=== PATIENT | female | born 1965 | race Caucasian/White ===

== ENCOUNTER 2021-04-21 23:03 | Inpatient (IN) | payer BC ==
--- OUTSIDE RECORDS SUMMARY | 2021-04-21 23:07 | XMS REPORT | Continuity of Care Document ---
:1965 Author Organization [facility] t Address [address] [place] [address] Care Team Providers Name Role Phone FABRICIO_Valdez Attending Clinician Unavailable Ariane Castro Attending Clinician Unavailable Sigifredo Admitting Clinician Unavailable Physician, Primary or Family Admitting Clinician Unavailabl e Payers Payer Name Policy Type Policy Number Effective Date Expiration Date Leanna paniagua AEMAGDALENO (POS) [id number] 2000 00:00:00 Problems This patient has no known problems. Allergies, Adverse Reactions, Alerts Allergy Allergy Status Severity Reaction(s) Onset Inactive Treating Comm ents Source Name Type Date Date Clinician hydrocod DA Active U 2005-04 [facility] [place] [facility] HYDROCOD DA Active U SEVERE N/V 2005-04 [facility] ONE 05-23 [place] [facility] No Known DA Active U 2005-04 [facility] [place] All[facility] 00:00: d s 00 [facility] No Known DA Active U 2005-04 [facility] [place] [facility]: d s 00 [facility] No Known DA Active U 2005-04 [facility] [place] All[facility]: d s 00 [facility] Medications This patient has no known medications. Procedures This patient has no known procedures. Encounters Start End Encounter Admission Attending Care Care Encounter Source Date/Time Date/Time Type Type Clinicians Facility Department ID 2020-08-29 2020-08-29 Outpatient _[facility] PRIV [id number] [facility] 01:08:00 01:08:00 _Lucía [id number] Medica l 2020-08-02 2020-08-02 Outpatient _[facility] PRIV PRIV [id number] [facility] 01:39:00 01:39:00 _Lucía [id number] Medica l 2020-07-28 2020-07-28 Outpatient _[facility] PRIV PRIV [id number] [facility] 01:26:00 01:26:00 _Lucía [id number] Medica l 2020-06-22 2020-06-22 Outpatient KAUR Castro [facility] [id number] [facility] 12:00:00 12:00:00 Ameena [id number] [facility] 2019-05-15 2019-05-15 Outpatient KAUR Castro P[facility] [id number] [facility] 12:00:00 12:00:00 Ameena [id number] [facility] Results This patient has no known results.
[2021-04-21] MEDS ORDERED: MORPHINE 4 MG/ML SYR ONE (23:38)
[2021-04-21] MEDS ORDERED: ASPIRIN 81 MG CHEWABLE TABLET ONE (23:38)
[2021-04-21] MEDS ORDERED: ONDANSETRON 4 MG/2 ML VIAL ONE (23:56)
[2021-04-22 00:01] LABS: Absolute Lymphocytes (CBC) 1.9 K/uL (0.7-4.9); Hematocrit 41.7 % (36.0-45.0); Lymphocytes % 17.4 % (15.3-44.8); MPV 8.1 fL (7.6-11.3); RBC Red Blood Cell Count 4.84 M/uL (3.86-4.86)
[2021-04-22 00:02] LABS: Protime INR 0.98
[2021-04-22 00:46] LABS: ALT/SGPT 33 U/L (12-78); AST/SGOT 45 U/L (15-37); Albumin 3.7 g/dL (3.4-5.0); Alkaline Phosphatase 92 U/L (45-117); BUN Blood Urea Nitrogen 22 mg/dL (7-18); Bicarbonate 26 mmol/L (21-32); Bilirubin Direct < 0.1 mg/dL (0-0.2); Bilirubin Total 0.3 mg/dL (0.2-1.0); Glucose Level 105 mg/dL (74-106); Magnesium 2.3 mg/dL (1.8-2.4); NT PRO-BNP 3325 pg/mL (<125); Potassium 3.8 mmol/L (3.5-5.1); Protein, Total 8.3 g/dL (6.4-8.2); Sodium Level 138 mmol/L (136-145)
[2021-04-22 00:47] LABS: Troponin (Emerg Dept Use Only) 7.96 ng/mL (0.0-0.045)
[2021-04-22] MEDS ORDERED: NITROGLYCERIN 0.4 MG/TAB SL ONE (01:01)
[2021-04-22] MEDS ORDERED: NITROGLYCERIN 1 GM PKT TD ONE (01:39)
--- NOTE | 2021-04-22 01:42 | EDPHYS ---
Physician Documentation [facility] Name: Leora Crystal Age: 56 yrs Sex: Female : 1965 Arrival Date: 04/21/2021 Time: 23:06 Bed 8 Private MD: ED Physician Robbie Sweeney HPI: 04/21 23:35 This 56 yrs old Female presents to ER via Ambulatory with complaints of Chest Pain > 30 cp y/o. 23:35 The patient or guardian reports chest pain that is located primarily in the anterior cp chest wall. 23:35 Onset: last night, and became worse tonight. cp 23:35 The pain does not radiate. Associated signs and symptoms: Pertinent positives: cp shortness of breath. 23:35 The chest pain is described as tightness. Duration: The patient or guardian reports cp multiple episodes, that wax and wane. 23:35 Modifying factors: the symptoms are aggravated by activity. cp Historical: - Allergies: 04/22 02:23 Hydrocodone-Acetaminophen; sm5 02:23 Levaquin; sm5 - Home Meds: 02:23 levothyroxine oral once daily [Active]; losartan oral [Active]; Viibryd oral [Active]; sm5 Zyrtec Oral [Active]; - PMHx: 02:23 Lupus erythematosus; Hypertensive disorder; Hypothyroidism; sm5 - Immunization history:: Client reports receiving the 2nd dose of the Covid vaccine. - Social history:: Smoking status: unknown. ROS: 04/21 23:40 Cardiovascular: Positive for chest pain, Negative for edema, palpitations. cp 23:40 Constitutional: Negative for body aches, chills, fever, poor PO intake. cp 23:40 Respiratory: Positive for shortness of breath, at rest. Negative for cough, wheezing. 23:40 Abdomen/GI: Negative for abdominal pain, vomiting, diarrhea, constipation. 23:40 Eyes: Negative for injury, pain, redness, and discharge. cp 23:40 ENT: Negative for drainage from ear(s), ear pain, sore throat, difficulty swallowing, difficulty handling secretions. 23:40 Back: Negative for pain at rest, pain with movement, radiated pain. 23:40 Neuro: Negative for dizziness, headache, syncope, weakness. 23:40 All other systems are negative. Exam: 23:37 ECG was reviewed by the Attending Physician. cp 23:43 Constitutional: The patient appears in no acute distress, alert, awake, cp non-diaphoretic, non-toxic, well developed, well nourished, uncomfortable. 23:43 Head/Face: Normocephalic, atraumatic. cp 23:43 Eyes: Periorbital structures: appear normal, Conjunctiva: normal, no exudate, no injection, Sclera: no appreciated abnormality, Lids and lashes: appear normal, bilaterally. 23:43 ENT: External ear(s): are unremarkable, Nose: is normal, Mouth: Lips: moist, Oral mucosa: pink and intact, moist, Posterior pharynx: Airway: no evidence of obstruction, patent. 23:43 Neck: ROM/movement: pain, that is mild, limited range of motion, is not appreciated, nuchal rigidity, is not appreciated. 23:43 Chest/axilla: Inspection: normal. 23:43 Cardiovascular: Rate: normal, Rhythm: regular, Edema: is not appreciated, JVD: is not appreciated. 23:43 Respiratory: the patient does not display signs of respiratory distress, Respirations: normal, no use of accessory muscles, no retractions, labored breathing, is not present, Breath sounds: are clear throughout, no decreased breath sounds, no stridor, no wheezing. 23:43 Abdomen/GI: Inspection: abdomen appears normal, Palpation: abdomen is soft and non-tender, in all quadrants. 23:43 Back: pain, is absent, ROM is normal. 23:43 Neuro: Orientation: to person, place \\T\\ time. Mentation: is normal, Motor: moves all fours, strength is normal, Sensation: is normal. 04/22 01:00 ECG was reviewed by the Attending Physician. cp Vital Signs: 04/21 23:17 BP 135 / 91; Pulse 92; Resp 16; Temp 98.8; Pulse Ox 100% on R/A; Weight 97.52 kg; vc1 Height 5 ft. 7 in. (170.18 cm); Pain 8/10; 23:17 Body Mass Index 33.67 (97.52 kg, 170.18 cm) vc1 MDM: 04/22 00:46 Patient medically screened. cp 01:34 Physician consultation: Kaushik Pablo MD was called at 01:34, answering service cp contacted and will page DR Pablo to call back for consult. 01:38 The patient was given aspirin in the Emergency Department. Data reviewed: vital signs, cp nurses notes, lab test result(s), EKG. Test interpretation: by ED physician or midlevel provider: ECG. Physician consultation: Kaushik Pablo MD was contacted at 01:35, regarding consult, patient's condition, would like admission per Dr. Syed Zhou MD would like medications started, heparin. 04/21 23:53 Order name: Basic Metabolic Panel bb 04/21 23:53 Order name: CBC with Diff bb 04/21 23:53 Order name: LFT's bb 04/21 23:53 Order name: Magnesium; Complete Time: 01:08 bb 04/21 23:53 Order name: NT PRO-BNP; Complete Time: 00:49 bb 04/22 00:49 Interpretation: Abnormal: NT PRO-BNP 3325. cp 04/21 23:53 Order name: PT-INR; Complete Time: 00:38 bb 04/21 23:53 Order name: Troponin (emerg Dept Use Only); Complete Time: 00:49 bb 04/22 00:49 Interpretation: Abnormal: TROPED 7.96. cp 04/21 23:53 Order name: XRAY Chest (1 view); Complete Time: 05:21 bb 04/21 23:54 Order name: Basic Metabolic Panel; Complete Time: 00:49 EDMS 04/22 00:49 Interpretation: Normal except: BUN 22; GFR 62. cp 04/21 23:54 Order name: CBC with Automated Diff; Complete Time: 00:38 EDMS 04/22 00:38 Interpretation: Normal except: INDIRA% 74.1. cp 04/21 23:54 Order name: Liver (Hepatic) Function; Complete Time: 01:08 EDMS 04/22 01:29 Interpretation: Normal except: AST 45; TP 8.3; GLOB 4.6; A/G 0.8. cp 04/21 23:58 Order name: Lipase; Complete Time: 01:29 la1 01 01:29 Interpretation: Abnormal: LIP 58. cp 04/22 00:53 Order name: COVID-19 SARS RT PCR (Document "Date of Onset" if Symptomatic); Complete cp Time: 05:21 04/22 01:59 Order name: Troponin I; Complete Time: 05:21 EDMS 04/22 01:59 Order name: Troponin I; Complete Time: 05:21 EDMS 04/22 01:59 Order name: Troponin I; Complete Time: 05:21 EDMS 04/22 07:05 Order name: PTT, Activated Partial Thromb; Complete Time: 05:21 EDMS 04/22 10:42 Order name: Lipid Profile; Complete Time: 05:21 EDMS 04/22 10:42 Order name: Thyroid Stimulating Hormone; Complete Time: 05:21 EDMS 04/23 05:14 Order name: CBC with Automated Diff; Complete Time: 05:21 EDMS 04/23 05:24 Order name: Basic Metabolic Panel EDOR 04/21 23:23 Order name: Cardiac monitoring; Complete Time: 01:23 vc1 04/21 23:23 Order name: EKG - Nurse/Tech; Complete Time: 23:51 vc1 04/21 23:23 Order name: IV Saline Lock; Complete Time: 23:51 vc1 04/21 23:23 Order name: Labs collected and sent; Complete Time: 23:51 vc1 04/21 23:23 Order name: O2 Per Protocol; Complete Time: 01:23 vc1 04/21 23:23 Order name: O2 Sat Monitoring; Complete Time: 01:23 vc1 04/21 23:53 Order name: EKG; Complete Time: 23:54 bb 04/22 01:05 Order name: Misc. Order: bed rest; Complete Time: 01:38 cp 04/22 01:40 Order name: NPO; Complete Time: 02:18 cp 04/22 01:59 Order name: EKG Electrocardiogram [facility] 04/22 01:59 Order name: EKG Electrocardiogram [facility] 04/22 01:59 Order name: EKG Electrocardiogram [facility] 04/22 01:59 Order name: EKG Electrocardiogram [facility] EC/06 23:37 Rate is 89 beats/min. Rhythm is regular. UT interval is normal. QRS interval is normal. cp QT interval is normal. T waves are Inverted in leads I, aVL. Interpreted by me. Reviewed by me. 04/22 01:00 Rate is 79 beats/min. Rhythm is regular. UT interval is normal. QRS interval is normal. cp QT interval is normal. T waves are Inverted in leads I, aVL. Interpreted by me. Reviewed by me. Administered Medications: 01/06 23:50 Drug: Aspirin Chewable Tablet 324 mg Route: PO; vc1 04/22 00:51 Follow up: Response: No adverse reaction vc1 04/21 23:51 Drug: morphine 4 mg {Note: Patient only wanted half to start with.} Route: IVP; Site: vc1 left antecubital; 04/22 00:51 Follow up: Response: No adverse reaction vc1 00:00 Drug: Zofran (Ondansetron) 4 mg Route: IVP; Site: left antecubital; 1 00:51 Follow up: Response: No adverse reaction vc1 01:05 Drug: Nitroglycerin 0.4 mg Route: Sublingual; 5 01:42 Drug: Nitro-Bid (nitroglycerin) Ointment 2 % 0.5 inches Route: Transdermal; Site: [facility] anterior chest wall; 01:58 Drug: Heparin (MT-Bolus No thrombolytic) - HEParin 60 units/kg {Co-Signature: mr2 (Sukh Santiago RN).} Route: IVP; Site: left antecubital; 01:58 Drug: PlaVIX (clopidogrel) 75 mg Route: PO; [facility] 02:20 Drug: Heparin (MT Drip) 12 units/kg/hr - (HEParin 66289 units, D5W 500 ml) [facility] {Co-Signature: mr2 (Sukh Santiago RN).} Route: IV; Rate: per protocol; Site: left antecubital; Disposition Summary: 04/22/21 01:41 Hospitalization Ordered Hospitalization Status: Inpatient Admission cp Provider: Syed Zhou cp Condition: Stable cp Problem: new cp Symptoms: have improved cp Bed/Room Type: Standard cp Location: [facility] ER HOLD(04/22/21 02:35) cg Room Assignment: ERHOLD-(04/22/21 02:35) cg Diagnosis - Subsequent non-ST elevation (NSTEMI) myocardial infarction cp Forms: - Medication Reconciliation Form cp - SBAR form cp Addendum: 05/02/2021 19:09 Co-signature as Attending Physician, Robbie farah Signatures: Dispatcher [employer] EDMS Robbie Sweeney MD MD pkl Jose Elias Uriostegui, MANAGER PROTEIN-C MANAGER PROTEIN-Cla1 Zafar Gonsalez PA PA cp Garcia, Cindy, RN RN Panfilo Mcallisterah, RN RN sm5 Elyse Fisher, RN RN vc1 Sukh Santiago RN mr2 Corrections: (The following items were deleted from the chart) 04/21 23:48 23:44 LIPASE+C.LAB.BRZ ordered. EDOR EDMS 04/22 00:38 00:38 INDIRA% 74.1. cp cp 02:35 01:41 Intensive Care Unit cp cg 02:35 01:41 cp cg 03:06 01:35 Data reviewed: vital signs, nurses notes, lab test result(s), EKG, cp cp 03: 01:35 The patient was given aspirin in the Emergency Department. cp cp 03:06 01:35 Test interpretation: by ED physician or midlevel provider: ECG, cp cp 03:06 01:35 Physician consultation: Kaushik Pablo MD was contacted at 01:35, regarding cp consult, patient's condition, would like admission per Dr. Syed Zhou MD would like medications started, heparin, cp
--- NOTE | 2021-04-22 01:42 | ER ---
Nurse's Notes [facility] Name: Leora Crystal Age: 56 yrs Sex: Female : 1965 Arrival Date: 04/21/2021 Time: 23:06 Bed 8 Private MD: Diagnosis: Subsequent non-ST elevation (NSTEMI) myocardial infarction Presentation: 04/21 23:14 Chief complaint: Patient states: Chest pain started yesterday, I'm having chest vc1 tightness, Shortness of breath, pain with deep breaths, hurts to lay down. I just can't get comfortable. Coronavirus screen: Vaccine status: Patient reports receiving the 2nd dose of the covid vaccine. 2 doses plus a booster. Ebola Screen: No symptoms or risks identified at this time. Risk Assessment: Do you want to hurt yourself or someone else? Patient reports no desire to harm self or others. Onset of symptoms was April 20, 2021. 23:14 Method Of Arrival: Ambulatory vc1 23:14 Acuity: SANDI 2 vc1 23:17 Initial Sepsis Screen: Does the patient meet any 2 criteria? HR > 90 bpm. No. Patient's vc1 initial sepsis screen is negative. Does the patient have a suspected source of infection? No. Patient's initial sepsis screen is negative. Triage Assessment: 23:16 General: Appears in no apparent distress. uncomfortable, Behavior is calm, cooperative, vc1 appropriate for age. Pain: Complains of pain in chest Pain radiates to neck Pain currently is 8 out of 10 on a pain scale. Quality of pain is described as pressure, Pain began 1 day ago. Cardiovascular: Reports chest pain. Historical: - Allergies: 04/22 02:23 Hydrocodone-Acetaminophen; sm5 02:23 Levaquin; sm5 - Home Meds: 02:23 levothyroxine oral once daily [Active]; losartan oral [Active]; Viibryd oral [Active]; sm5 Zyrtec Oral [Active]; - PMHx: 02:23 Lupus erythematosus; Hypertensive disorder; Hypothyroidism; sm5 - Immunization history:: Client reports receiving the 2nd dose of the Covid vaccine. - Social history:: Smoking status: unknown. Screenin/06 23:15 Abuse screen: Denies threats or abuse. Nutritional screening: No deficits noted. vc1 Tuberculosis screening: No symptoms or risk factors identified. Fall Risk None identified. Assessment: 23:15 Also complains of shortness of breath, sleeplessness. vc1 23:15 General: Appears uncomfortable, Behavior is calm, cooperative, appropriate for age. vc1 Pain: Complains of pain in chest Pain radiates to neck. Pain: Noted to be grimacing, Also complains of sleeplessness, shortness of breath. Pain: Pain currently is 8 out of 10 on a pain scale. Quality of pain is described as pressure, Pain began suddenly. Neuro: No deficits noted. Cardiovascular: Reports chest pain, Chest pain is described as diffuse, quality is pressure, is located in chest wall radiates neck Shoulders. Respiratory: Reports shortness of breath at rest Airway is patent Respiratory effort is even, unlabored. GI: No deficits noted. Vital Signs: 23:17 BP 135 / 91; Pulse 92; Resp 16; Temp 98.8; Pulse Ox 100% on R/A; Weight 97.52 kg; vc1 Height 5 ft. 7 in. (170.18 cm); Pain 8/10; 23:17 Body Mass Index 33.67 (97.52 kg, 170.18 cm) vc1 ED Course: 23:06 Patient arrived in ED. wm 23:16 Triage completed. vc1 23:29 [facility]af[facility] Gons[facility]. cp 23:29 Robbie Sweeney MD is Attending Physician. cp 04/22 00:47 Zakia Carbajal, RN is Primary Nurse. 5 00:47 Notified Nurse Practitioner and/or Physician Special Librarian of a critical lab result(s), bb trop of 7.96 Zafar SHEPPARD notified. 01:07 COVID-19 SARS RT PCR (Document "Date of Onset" if Symptomatic) Sent. 5 01:41 Syed Zhou MD is Hospitalizing Provider. cp 01:44 XRAY Chest (1 view) In Process Unspecified. EDMS 02:27 Patient has correct armband on for positive identification. Bed in low position. Call [facility] light in reach. Side rails up X2. surveillance system monitor on. Pulse ox on. NIBP on. 02:27 No provider procedures requiring assistance completed. Inserted saline lock: 18 gauge [facility] in left antecubital area, using aseptic technique. Patient maintains SpO2 saturation greater than 95% on room air. 02:28 Arm band placed on right wrist. [facility] 04/23 07:26 Primary Nurse role handed off by Zakia Carbajal RN 2 07:26 Akosua Pierre RN is Primary Nurse. tw2 Administered Medications: 04/21 23:50 Drug: Aspirin Chewable Tablet 324 mg Route: PO; vc1 04/22 00:51 Follow up: Response: No adverse reaction vc1 04/21 23:51 Drug: morphine 4 mg {Note: Patient only wanted half to start with.} Route: IVP; Site: vc1 left antecubital; 04/22 00:51 Follow up: Response: No adverse reaction 1 00:00 Drug: Zofran (Ondansetron) 4 mg Route: IVP; Site: left antecubital; 1 00:51 Follow up: Response: No adverse reaction 1 01:05 Drug: Nitroglycerin 0.4 mg Route: Sublingual; [facility] 01:42 Drug: Nitro-Bid (nitroglycerin) Ointment 2 % 0.5 inches Route: Transdermal; Site: [facility] anterior chest wall; 01:58 Drug: Heparin (AK-Bolus No thrombolytic) - HEParin 60 units/kg {Co-Signature: mr2 (Sukh Santiago RN).} Route: IVP; Site: left antecubital; 01:58 Drug: PlaVIX (clopidogrel) 75 mg Route: PO; [facility] 02:20 Drug: Heparin (AK Drip) 12 units/kg/hr - (HEParin 67411 units, D5W 500 ml) [facility] {Co-Signature: mr2 (Sukh Santiago RN).} Route: IV; Rate: per protocol; Site: left antecubital; Outcome: 01:41 Decision to Hospitalize by Provider. 04/23 11:58 Patient left the ED. [facility] Signatures: Dispatcher [employer] EDMS Rosie Velázquez RN RN bb Zafar Gonsalez PA PA Akosua Pierre RN RN 2 Tanisha Falcon Zakia Carbajal RN RN [facility] Elyse Fisher RN RN vc1 Sukh Santiago RN mr2
[2021-04-22] MEDS ORDERED: HEPARIN 5000 UNIT/ML 1 ML VIAL ONE (01:49)
[2021-04-22] MEDS ORDERED: HEPARIN/D5W 25,000 UNIT/500 ML BAG IV ONE (01:49)
[2021-04-22] MEDS ORDERED: CLOPIDOGREL 75 MG TABLET ONE (01:49)
[2021-04-22] MEDS ORDERED: ACETAMINOPHEN 500 MG TAB PO PRN (01:55)
[2021-04-22] MEDS: MORPHINE 4 MG/ML SYR IV PRN ×3 (03:38→22:55)
[2021-04-22] MEDS ORDERED: HEPARIN/D5W 25,000 UNIT/500 ML BAG IV SCH (06:00)
[2021-04-22 07:48] VITALS: BMI 38.2
[2021-04-22] MEDS: ASPIRIN EC 81 MG TAB PO SCH (09:00)
--- NOTE | 2021-04-22 09:03 | RAD REPORT ---
EXAM DESCRIPTION: RAD - Chest Single View - 04/22/2021 1:44 am CLINICAL HISTORY: CHEST PAIN COMPARISON: August 2017 TECHNIQUE: AP portable chest image was obtained 04/22/2021 1:44 am . FINDINGS: Shallow inspiration noted compared to the 2018 study. No peripheral mass or consolidations seen. Lower lung field interstitial pattern is accentuated due to the shallow inspiration, overlying prominent soft tissues and under penetrated technique. Heart and vasculature are normal. No measurab le pleural effusion and no pneumothorax. No acute bony abnormality seen. Hiatal hernia is present. IMPRESSION: Limited exam without acute cardiopulmonary finding. Minimal interstitial edema or infiltrate could be masked. Small hiatal hernia not significantly different from 2018.
--- NOTE | 2021-04-22 10:04 | EKG ---
Test Date: 2021-04-22 Test Time: 03:52:28 Youth Coordinator: ST MEASUREMENT RESULTS: Intervals: Rate: 76 TX: 184 QRSD: 68 QT: 406 QTc: 456 [place]: P: 25 TX: 184 QRS: -9 T: 109 INTERPRETIVE STATEMENTS: Age and gender specific ECG analysis Normal sinus rhythm Inferior infarct, age undetermined Lateral injury pattern ACUTE AL Abnormal ECG No previous ECG available for comparison Electronically Signed On 04-22-21 10:03:39 WOOL BUYER by Kaushik Pablo
[2021-04-22 10:41] LABS: Thyroid Stimulating Hormone 1.11 uIU/mL (0.360-3.740)
[2021-04-22] MEDS ORDERED: HEPA 1000U/500MLS 1,000 UNIT/500 ML BAG IV ONE ×2 (11:48→12:55)
[2021-04-22] MEDS ORDERED: LIDOCAINE 1% 20 ML MDV ONE (11:48)
[2021-04-22] MEDS ORDERED: MIDAZOLAM HCL 2 MG/2 ML INJ ONE ×2 (11:48→13:04)
[2021-04-22] MEDS ORDERED: ATROPINE SULF 1 MG/10 ML SYR IV ONE (11:49)
[2021-04-22] MEDS ORDERED: NA CHLORIDE 0.9% 500 ML ONE (11:49)
[2021-04-22] MEDS ORDERED: FENTANYL CITR 100 MCG/2 ML ONE (11:49)
[2021-04-22] MEDS ORDERED: NA CHLORIDE 0.9% 0 ML ONE (11:50)
[2021-04-22] MEDS ORDERED: NITROGLYCERIN 100 MCG/ML SYR (for cath lab use only) IV ONE (11:54)
[2021-04-22] MEDS ORDERED: NITROGLYCERIN/D5W 25 MG/250 ML BTL IV ONE (11:55)
[2021-04-22] MEDS ORDERED: ONDANSETRON 4 MG/2 ML VIAL ONE ×2 (12:43→18:36)
[2021-04-22] MEDS ORDERED: MORPHINE 4 MG/ML SYR ONE ×3 (13:12→22:47)
--- NOTE | 2021-04-22 14:46 | ECHO ---
HEIGHT: 5 ft 6 in WEIGHT: 237 lb 0 oz DATE OF STUDY: 04/22/[address]: Kaushik Pablo MD 2-DIMENSIONAL: YES M.MODE: YES DOPPLER: YES COLOR FLOW: YES TDS: NO PORTABLE: NO DEFINITY: NO BUBBLE STUDY: NO DIAGNOSIS: MYOCARDIAL INFARCTION CARDIAC HISTORY: CATHERIZATION: SURGERY: PROSTHETIC VALVE: PACEMAKER: MEASUREMENTS (cm) DIASTOLIC (NORMALS) SYSTOLIC (NORMALS) IVSd 1.0 (0.6-1.2) LA Diam 3.8 (1.9-4.0) LVEF 56% LVIDd 4.7 (3.5-5.7) LVIDs 3.3 (2.0-3.5) %FS 29% LVPWd 1.0 (0.6-1.2) Ao Diam 2.9 (2.0-3.7) 2 DIMENSIONAL ASSESSMENT: RIGHT ATRIUM: NORMAL LEFT ATRIUM: NORMAL RIGHT VENTRICLE: NORMAL LEFT VENTRICLE: NORMAL TRICUSPID VALVE: NORMAL MITRAL VALVE: NORMAL PULMONIC VALVE: NORMAL AORTIC VALVE: NORMAL PERICARDIAL EFFUSION: NONE AORTIC ROOT: NORMAL LEFT VENTRICULAR WALL MOTION: NORMAL DOPPLER/COLOR FLOW: NORMAL. COMMENTS: NORMAL 2D ECHO WITH DOPPLER. NO WALL MOTION ABNORMALITY. NO EFFUSION. TECHNOLOGIST: LILIANA LEE
[2021-04-22] MEDS ORDERED: COLCHICINE 0.6 MG TAB PO ONE (14:57)
[2021-04-22] MEDS ORDERED: COLCHICINE 0.6 MG TAB ONE (15:53)
[2021-04-22 17:01] VITALS: TEMP 98.1
[2021-04-22] MEDS: ONDANSETRON 4 MG/2 ML VIAL IV PRN (18:46)
[2021-04-22 21:01] VITALS: O2SAT 99
[2021-04-23] MEDS ORDERED: ONDANSETRON 4 MG/2 ML VIAL ONE ×2 (02:42→08:34)
[2021-04-23] MEDS ORDERED: MORPHINE 4 MG/ML SYR ONE ×2 (02:42→08:34)
[2021-04-23] MEDS: ONDANSETRON 4 MG/2 ML VIAL IV PRN (02:45)
[2021-04-23] MEDS: MORPHINE 4 MG/ML SYR IV PRN (02:45)
[2021-04-23 05:07] LABS: Absolute Lymphocytes (CBC) 0.9 K/uL (0.7-4.9); Hematocrit 37.6 % (36.0-45.0); Lymphocytes % 9.3 % (15.3-44.8); MPV 8.3 fL (7.6-11.3); RBC Red Blood Cell Count 4.31 M/uL (3.86-4.86)
[2021-04-23 05:23] LABS: Potassium 3.5 mmol/L (3.5-5.1)
[2021-04-23] MEDS ORDERED: ASPIRIN EC 81 MG TAB PO ONE (07:48)
[2021-04-23] MEDS ORDERED: ATORVASTATIN 40 MG TAB ONE (08:29)
[2021-04-23] MEDS ORDERED: COLCHICINE 0.6 MG TAB ONE (08:30)
[2021-04-23] MEDS: ASPIRIN EC 81 MG TAB PO SCH (08:40)
[2021-04-23 08:51] VITALS: BP 108/72
[2021-04-23] MEDS ORDERED: COLCHICINE 0.6 MG TAB PO SCH (09:00)
[2021-04-23] MEDS ORDERED: ATORVASTATIN 40 MG TAB PO SCH (09:00)
[2021-04-23] MEDS ORDERED: METHYLPREDNISOLONE 40 MG INJ ONE (09:51)
[2021-04-23] MEDS ORDERED: METHYLPREDNISOLONE 125 MG INJ IV ONE (10:00)
[2021-04-23] MEDS ORDERED: INDOMETHACIN 25 MG CAP PO ONE (10:30)
--- NOTE | 2021-04-23 13:50 | EKG ---
Test Date: 2021-04-21 Test Time: 23:30:44 Remelter: SILKE MEASUREMENT RESULTS: Intervals: Rate: 89 AL: 168 QRSD: 82 QT: 396 QTc: 481 [place]: P: 22 AL: 168 QRS: -13 T: 120 INTERPRETIVE STATEMENTS: Normal sinus rhythm Possible Left atrial enlargement Inferior infarct, age undetermined T wave abnormality, consider lateral ischemia Abnormal ECG No previous ECG available for comparison Electronically Signed On 04-23-21 13:47:48 BEAMER HAND by Kaushik Pablo
--- NOTE | 2021-04-23 13:50 | EKG ---
Test Date: 2021-04-22 Test Time: 00:55:58 Structural Analysis Engineer: ZAIN MEASUREMENT RESULTS: Intervals: Rate: 79 FL: 176 QRSD: 82 QT: 388 QTc: 444 [place]: P: 34 FL: 176 QRS: -7 T: 122 INTERPRETIVE STATEMENTS: Normal sinus rhythm Possible Left atrial enlargement T wave abnormality, consider lateral ischemia Abnormal ECG Compared to ECG 04/21/2021 23:30:44 Myocardial infarct finding no longer present T-wave abnormality still present Possible ischemia still present Electronically Signed On 04-23-21 13:47:48 BLADE OPERATOR by Kaushik Pablo
--- NOTE | 2021-04-23 14:00 | CON ---
Date of Consultation: 04/22/[address] Zhou on 04/22/2021. I saw her on 04/22/2021. Reason For Consultation: Non-STEMI and chest pain. History Of Present Illness: Ms. Crystal is 56, has a history of lupus and hypertension. She came in with left shoulder, upper shoulder constant pain for about 3 days. EKG showed some possible ST orourke es in lead 1 and lead L. Troponin was 7.96. Her BNP was 3325. Denied nausea, vomiting, diaphoresis , PND, orthopnea, pedal edema, palpitations, or syncope. Past Medical History: Includes hypertension. Allergies: SHE IS ALLERGIC TO HYDROCODONE AND LEVAQUIN. Family History: Negative. Social History: Negative. Medications: At home are listed by Dr. Zhou. Physical Examination: Vital Signs: Stable. Afebrile. HEENT: Negative. Neck: Supple with no bruit. Chest: Clear to auscultation and percussion. Cardiac: Revealed a regular rhythm and rate. No murmurs, gallops, or rubs. Abdomen: Benign. Extremities: Revealed no clubbing, cyanosis, or edema. Diagnostic Data: As stated earlier, chest x-ray is negative. Impression And Plan: 1.Thf-MK-[id number] elevation myocardial infarction with chest pain, possible EKG changes. We will pro ceed with a left heart catheterization to define her coronary anatomy. The patient understands the r isks and the benefits of the procedure and she agreed to proceed. 2.Hypertension, well controlled. 3.Lupus, followed by Nephrology. I will discuss the case further with Dr. Zhou. ISHMAEL/PETEY Voice ID: [id number] Report ID: [id number]
--- NOTE | 2021-04-23 19:57 | DS ---
Date of Discharge: 04/23/2021 Disposition: Discharged to go home. Physical Examination: HEENT: Unremarkable. Lungs: Clear to auscultation. Heart: Sounds normal. Abdomen: Soft. Bowel sounds normal. No guarding, rigidity, tenderness, or distention. Extremities: No leg edema. Discharge Diagnoses: 1.Kgs-AA-vttibbqzv myocardial infarction acute pericarditis. 2.Hypertension. 3.Hyperlipidemia. 4.Hypothyroidism. 5.Allergic rhinitis. 6.Obstructive sleep apnea. 7.Nonalcoholic fatty liver disease. 8.Systemic lupus erythematosus. Laboratory Data: Today; white count 9.7, hemoglobin 12, and platelets 260. Yesterday's labs reviewe d. Today's chemistry, sodium 135, potassium 3.5, chloride 105, bicarb 24, BUN 14, creatinine 0.81, a nd glucose 135. Discharge Medications And Instructions: 1.Continue all prior home medications except stop olmesartan/hydrochlorothiazide. 2.Start following new medications. a.Atorvastatin 40 mg one tablet by mouth daily at bedtime. b.Colchicine 0.6 mg one tablet by mouth two times a day for two weeks. c.Indomethacin 50 mg one capsule by mouth two times a day with food for two weeks. d.If above mentioned two medications, which is colchicine and indomethacin, does not help to control her pain adequately, then the patient was instructed to start prednisone 10 mg and the patient will take two tablets by mouth two times a day for four days, then two tablets by mouth daily for four day s, then one tablet by mouth daily for four days, then half tablet by mouth daily for four days, then stop; take it with food. e.Start metoprolol succinate 25 mg one tablet by mouth daily. 3.Follow up at my office on Sunday which is 04/26/2021 at 9 a.m. Hospital Course: A 56-year-old very pleasant female patient, who was admitted to the hospital with c hest pain. Please see dictated H and P for more information. After the patient was evaluated in the emergency room, she was admitted to the hospital with non-STEMI. The patient was started on IV hepa rin drip. Morphine was ordered for pain control. Dr. Pablo from Cardiology Service was consulted and the patient had cardiac cath done yesterday and echocardiogram was also done yesterday. Her echo cardiogram showed normal ejection fraction and no evidence of pericardial effusion. Her cardiac cath eterization also came back normal. All these details were discussed with the patient's and t he patient by Dr. Pablo yesterday and this morning when I saw her, also I explained her about all t hese test results. After this cardiac cath procedure, the patient continued to have chest pain and o nce again, she tells me that the pain is worse when she is lying down and Dr. Pablo and I have disc ussed this yesterday. Her pain is indicating acute pericarditis type of problem and yesterday she re ceived one dose of colchicine and throughout the night, she used morphine every four hours for pain c ontrol. This morning, I ordered another dose of colchicine and one dose of indomethacin and Solu-Med rol 60 mg IV dose. Her pain was better and the patient was comfortable going home. She was discharg ed to go home in stable condition. I also informed her that she will need to follow up with her rheu matologist. She has not seen her board turner in last few years and she was instructed to follow u p with the board turner to see if this acute pericarditis is somehow in any way connected to her co nnective tissue disease problem or not. I will see her this coming week on Sunday as planned. Depe nding on her condition, we will decide at what point she may return to work. LUIS MANUEL/MODL Voice ID: [id number] Report ID: [id number]
--- NOTE | 2021-04-23 20:12 | HP ---
Date of Admission: 04/22/2021 Chief Complaint: Chest pain. History Of Present Illness: This is a 56-year-old more pleasant female patient, who was doing fine i n her normal usual state of health until day before yesterday, which is on Sunday. She started to have problem with the chest pain. The patient describes her pain as heaviness, pressure type of fee ling in the center of the chest and then, subsequently moved to her left upper anterior chest area. The pain was more or less continuous for few hours throughout the day. Had some associated tiredness , feeling with this chest pain. No shortness of breath. No nausea or vomiting. No sweating. The p atient went to bed, woke up feeling okay, but subsequently her chest pain came on again later on, and then she decided to come to emergency room. After she was evaluated last night, she was admitted to the hospital with non-STEMI. She was started on heparin drip. The patient this morning when I saw her she was in the emergency room. Diamond Expert Dr. Pablo has already evaluated her and he is plan sarath to do cardiac cath later today. The patient reports today that her pain is worse when she is ly ing down. No fever or chills. Medications: Her medication list reviewed. According to office records, she is on albuterol inhaler as needed, Zyrtec 10 mg daily; losartan/hydrochlorothiazide 50/12.5, takes half a tablet daily; levo thyroxine 75 mcg daily, omeprazole 40 mg daily, and she takes Viibryd 20 mg daily. Allergies: SHE IS LISTED ALLERGIC TO AMOXICILLIN CAUSING CHEST PAIN TYPE OF SIDE EFFECT, LEVAQUIN DETAILS UNKNOWN, CODEINE DETAILS UNKNOWN, AND HYDROCODONE DETAILS UNKNOWN. Review of Systems: Cardiovascular: As mentioned above. Constitutional: As mentioned above. All other systems reviewed and negative. Past Medical History: Allergic rhinitis, thyroid nodule, hypothyroidism, pulmonary nodule, hypertens ion, hyperlipidemia, nonalcoholic fatty liver disease, systemic lupus erythematosus, and obstructive sleep apnea. Past Surgical History: Significant for hysterectomy due to endometriosis, bladder sling surgery for urinary incontinence, and ankle surgery for the fracture. Family History: Significant for mother with hypertension and diabetes. Social History: Negative for smoking and alcohol use. Immunization History: The patient had obtained immunization on June 30, 2020 and July 29, 2020. Physical Examination: Vital Signs: Temperature 99.6, pulse 90, respiratory rate 14, blood pressure 103/66, and oxygen satu ration 97%. Height 5 feet 6 inches and weight 287 pounds. General: Awake, alert, oriented, not in distress. HEENT: Head atraumatic, normocephalic. Conjunctivae nonerythematous. Sclerae white. Mouth, no thr ush or edema noted. Ears/Nose, no mass, lesion, discharge noted. Neck: Supple. No JVD, lymph nodes, bruit, thyromegaly noted. Lungs: Bilateral good equal air entry. Clear to auscultation. No rhonchi. No rales. Heart: Normal heart sounds. No murmur or gallop. Abdomen: Soft, bowel sounds normal. No guarding, rigidity, tenderness, mass, hepatosplenomegaly, di stention, or bruit noted. Extremities: No leg edema. No calf tenderness. Skin: No rash, ulcer, or cellulitis. Lymphatics: No lymph node enlargement in neck, supraclavicular, infraclavicular region. Neuro: No focal neurological deficit. Chest: Unremarkable. External Genitalia: Deferred. Rectal: Deferred. Laboratory Data: White count 10.8, hemoglobin 13.4, and platelets 322. Sodium 138, potassium 3.8, c hloride 104, bicarb 26, BUN 22, creatinine 0.93, and glucose 105. Liver function tests unremarkable except AST 45. Initial troponin 7.96, second troponin 8.20, and third troponin 6.43. ProBNP 3325. Albumin 3.7, lipase 58, LDL cholesterol 126, HDL 71, total cholesterol 209, triglyceride 62, and TSH 1.1. COVID-19 test negative. EKG had shown some ST-T changes, inferior infarct, lateral injury lachelle opal. Chest x-ray, portable x-ray, no acute cardiopulmonary changes. Impression: 1.Hpg-SU-opolzvzqg myocardial infarction. 2.Hypertension. 3.Hyperlipidemia. 4.Systemic lupus erythematosus. 5.Nonalcoholic fatty liver disease. 6.Obstructive sleep apnea. 7.Hypothyroidism. 8.Allergic rhinitis. Plan: Admit the patient to hospital for further evaluation and management of this problem. The [facility] is appropriate for inpatient and is expected to spend two midnights in the hospital. The patient was started on heparin drip. We will continue that. Continue pain medication, which is morphine on a p.r.n. basis. Cardiology consultation has been obtained. We will continue her anticoagulation th erapy. High dose statin therapy will be started and we will call her in followup after her cardiac c atheterization. Details were discussed with her with any plan of treatment. Depending on cardiac ca th finding, further intervention will be provided by continuous yarn dyeing machine operator. Details were discussed with cardi ologist as well. LUIS MANUEL/PETEY Voice ID: [id number]
--- NOTE | 2021-04-23 20:15 | OP ---
Date of Procedure: 04/22/2021 Surgeon: Kaushik Pablo MD Predatory Animal Exterminator: Eleonora Feldman. Procedure: Left heart catheterization with selective coronary arteriogram, and aortic root angiograp hy. Indication: Non-STEMI. Description Of Procedure: Ms. Crystal had come into the emergency room with chest pain, and has a his tory of lupus, positive troponin. Brought to the hatchery laborer on 04/22/2021 as an inpatient, prepped and draped in routine sterile fashion. Given Versed and fentanyl for sedation. 6-Luxembourgish sheath introdu arslan in the right common femoral artery. Abigail catheter initially was used and it was selected in t he circumflex and the circumflex was normal. I had to use an AL1 catheter to cannulate the LAD, whic h was also normal. The pigtail catheter was used to rule out any anomalies in the aortic root area a nd that was normal. The RCA was cannulated with a JL4, that was normal. Patient tolerated the proce dure well. Complications: There were no complications. Estimated Blood Loss: 5 cc. Final Diagnoses: Chest pain. Mild ST changes, elevated troponin, lupus, possible pericarditis. Ech ocardiography was normal. Case was discussed with Dr. Zhou. We will restart the patient on colchici ne and in the groin was normal. Angio-Seal will be used to close the case. Anesthesia: Total conscious sedation was 45 minutes. Patient will remain in the hospital for at least 2 hours after the procedure. We may even watch her 1 more day before she goes home. ISHMAEL/PETEY Voice ID: [id number] Report ID: [id number]
== END 2021-04-23 11:58 | disposition home or self-care (01) | DRG 281 ==
LOC: ER 23:03 → ERHOLD 04-22 02:06
PROVIDERS: ADMIT Internal Medicine; ATTEND Internal Medicine
PROC: B201YZZ Plain Radiography of Multiple Coronary Arteries using Other Contrast (ICD-10-PCS; principal; 2021-04-22)
PROC: B300YZZ Plain Radiography of Thoracic Aorta using Other Contrast (ICD-10-PCS; 2021-04-22)
DX: I21.4 Non-ST elevation (NSTEMI) myocardial infarction (principal); I30.9 Acute pericarditis, unspecified; I10 Essential (primary) hypertension; E78.5 Hyperlipidemia, unspecified; E03.9 Hypothyroidism, unspecified; J30.9 Allergic rhinitis, unspecified; G47.33 Obstructive sleep apnea (adult) (pediatric); K76.0 Fatty (change of) liver, not elsewhere classified; M32.9 Systemic lupus erythematosus, unspecified; Z20.822 Contact with and (suspected) exposure to COVID-19
CPT/HCPCS: 36415; 71045; 80048; 80061; 80076; 83690; 83735; 83880; 84443; 84484; 85025; 85610; 85730; 93005; 93306; 93454; 96374; 96375; 99285; C1760; C1893; J0583; J1644; J2250; J2405; J2920; J3010; J7040; U0003

== ENCOUNTER 2025-02-06 06:00 | Day surgery (SDC) | payer BC ==
[2025-02-04 13:43] LABS: Absolute Lymphocytes (CBC) 1.9 K/uL (0.7-4.9); Hematocrit 38.9 % (36.0-45.0); Hemoglobin 12.5 g/dL (12.0-15.0); MCH 27.2 pg (27.0-35.0); MCHC 32.2 g/dL (32.0-36.0); MCV 84.8 fL (80-100); MPV 8.5 fL (7.6-11.3); Nucleated RBC Absolute Count 0.0 (0-0); Nucleated Red Blood Cells % 0.0 % (0-0); RBC Red Blood Cell Count 4.59 M/uL (3.86-4.86); White Blood Count 6.80 thou/uL (4.3-10.9)
--- NOTE | 2025-02-04 13:50 | RAD REPORT ---
EXAM: Chest Pa And Lat (2 Views) HISTORY: 59 years Female pre procedure COMPARISON: CT 01/30/2025 FINDINGS: LUNGS/PLEURA: The lungs are clear. No pleural effusions or pneumothorax. No pulmonary edema. CARDIAC/MEDIASTINUM: The cardiac silhouette is within normal limits. Moderate to large hiatal hernia. UPPER ABDOMEN: No significant abnormality. BONES: No acute abnormality. LINES/TUBES/OTHER: N/A IMPRESSION: No evidence of acute cardiopulmonary disease.
[2025-02-04 14:13] LABS: PT Prothrombin Time 12.5 SECONDS (10-13.0); PTT, Activated Partial Thromb 33.6 SECONDS (27.2-37.4); Protime INR 1.11
[2025-02-04 14:45] LABS: Anion Gap 8.9 mEq/L (5.0-15.0); BUN Blood Urea Nitrogen 25.0 mg/dL (7-18); Glucose Level 135.0 mg/dL (74-106); Potassium 3.9 mEq/L (3.5-5.1)
[2025-02-06] MEDS ORDERED: NA CHLORIDE 0.9% 500 ML ONE (06:18)
[2025-02-06] MEDS ORDERED: LIDOCAINE 1% 20 ML MDV ONE (06:24)
[2025-02-06] MEDS ORDERED: HEPA 1000U/500MLS 2,000 UNIT/1,000 ML BAG IV ONE (06:24)
[2025-02-06] MEDS ORDERED: VERAPAMIL HCL 10 MG/4 ML VIAL IV ONE (06:25)
[2025-02-06] MEDS ORDERED: HEPARIN 5000 UNIT/ML 1 ML VIAL ONE (06:25)
[2025-02-06] MEDS ORDERED: NITROGLYCERIN/D5W 50 MG/250 ML BTL IV ONE (06:25)
[2025-02-06] MEDS: ASPIRIN 325 MG TAB ONE (06:26)
[2025-02-06] MEDS ORDERED: FENTANYL CITR 100 MCG/2 ML ONE (06:38)
[2025-02-06] MEDS ORDERED: MIDAZOLAM HCL 2 MG/2 ML INJ ONE (06:39)
[2025-02-06] MEDS ORDERED: HEPARIN 10,000 UNIT/10 ML VIAL IV ONE (06:52)
[2025-02-06 08:46] VITALS: O2SAT 99
[2025-02-06 09:44] VITALS: BP 141/68
--- NOTE | 2025-02-06 15:57 | OP ---
Date of Procedure: 02/06/2025 Surgeon: Reagan Trinidad Procedures Performed: 1. Selective coronary angiogram. 2. Left heart catheterization. 3. Right heart catheterization. Indications: 1. Chest pain with abnormal stress test. 2. Significant shortness of breath. Access: 1. Right radial artery 6-Croatian closed with TR band. 2. Right IJ 7-Croatian closed with manual pressure. Complications: None. Bleeding: Less than 50 mL. Sedation Time: 1 hour, used fentanyl and Versed. Description Of Procedure: After risks, benefits, and alternatives were explained, the patient agreed to procedure, signed informed consent. The patient was brought into cardiac catheterization [facility], prepped and draped in the usual sterile fashion. Then, I accessed right IJ using ultrasound eleonora dance and micropuncture kit and placed 7-Croatian [place] sheath, accessed right radial artery using a micropuncture kit, ultrasound guidance, and placed a 6-Croatian slender sheath and then took a balloon -tipped 7-Croatian [place] catheter through the IJ access into the right atrium, right ventricle, pulmonar y artery and wedge, obtained waveform and pressure and then obtained cardiac output by thermodilution al method. Then removed the [place] and the access sheath was removed and manual pressure was used for closure with good hemostasis. Then, we took 5-Croatian [place] 4.0 catheter over a J-wire into the aorti c root through the radial access, crossed the aortic valve, measured the LVEDP, and pullback did not record any significant gradient. Then engaged the left main, took standard views, and then in the RC A, took standard views. Then, I removed the catheter and the sheath, placed TR band with good hemost asis. Findings: 1. The coronary angiogram. a. Left main; it is very short. The LAD and the left circumflex have separate ostium. b. LAD; large size artery, proximal luminal irregularities in the mid segment. At the diagonal 2 takeoff, there is about 30% to 40% stenosis. Diagonal 2 branch has ostial 30% stenosis. Rest of th e LAD is normal. c. Left circumflex; has a separate ostium from the LAD and it is entirely normal. d. RCA; it is moderate-size vessel with distal 20% to 30%. stenosis and it is a dominant circulat ion. e. LVEDP is elevated at 23 mmHg. 2. Right heart cath numbers: RA pressure mean of 5, RV pressure 33/2, mean of 9. PA pressure is 34/ 6, mean of 19. Pulmonary wedge pressure was 11 mmHg. Cardiac output was 6.68 L/minute. Conclusion: 1. Mild nonobstructive coronary artery disease. 2. Elevated left-sided filling pressure. Recommendations: Medical management and diuretics. SR/MODL Voice ID: [id number] Report ID: [id number]
== END 2025-02-06 09:50 | disposition home or self-care (01) ==
LOC: CCL 06:00
PROVIDERS: ATTEND Internal Medicine
DX: I25.110 Atherosclerotic heart disease of native coronary artery with unstable angina pectoris (principal); I73.9 Peripheral vascular disease, unspecified; I10 Essential (primary) hypertension; E78.2 Mixed hyperlipidemia; K21.9 Gastro-esophageal reflux disease without esophagitis; Z79.899 Other long term (current) drug therapy; Z88.1 Allergy status to other antibiotic agents; Z88.5 Allergy status to narcotic agent
CPT/HCPCS: 36415; 71046; 76937; 80048; 85025; 85610; 85730; 93005; 93460; 99152; 99153; C1893; J1644; J2003; J2250; J3010; J7040; Q9966